=== PATIENT | male | born 1950 | race Caucasian/White ===

== ENCOUNTER 2017-11-10 16:33 | Emergency (ER) | payer MEDICARE ==
[2017-11-10] MEDS ORDERED: DOXYCYCLINE HYCLATE 100 MG TABLET PO ONE (17:33)
[2017-11-10] MEDS ORDERED: ACETAMINOPHEN 325 MG TABLET PO ONE (17:33)
--- NOTE | 2017-11-10 17:37 | ER Document Report ---
ED Skin Rash/Insect Bite/Abscs - General Chief Complaint: Abscess Stated Complaint: POSSIBLE ABSCESS Time Seen by Provider: 11/10/17 17:28 Mode of Arrival: Ambulatory Information source: Patient Notes: 67-year-old male presents emergency department with complaints of possible abscess to his back. Patient states that this has been present over the last couple of days. Patient has a history of cellulitis and abscesses. He denies a history of MRSA. Patient states his tetanus is up-to-date. Patient states that he went to urgent care today and they told him he needed to go to the emergency department for an evaluation. In the emergency department, patient has a temperature of 100.7. Patient denies taking any Tylenol or Motrin prior to arrival. He denies any chest pain, shortness of breath, abdominal pain, nausea, vomiting, diarrhea, constipation, dysuria, hematuria. TRAVEL OUTSIDE OF THE [place] IN LAST 30 DAYS: No - HPI Patient complains to provider of: Other - Abscess Onset: Last week Onset/Duration: Gradual Quality of pain: Achy Severity: Mild Pain Level: 2 Skin Character: Abscess Skin Temperature: Warm Quality of rash: No: Itchy, Painful, Burning Identify cause: No Exacerbated by: Denies Relieved by: Denies Similar symptoms previously: Yes Recently seen / treated by doctor: No - Related Data Allergies/Adverse Reactions: atorvastatin [From Lipitor] Allergy (Verified 11/10/17 17:14) bacitracin [From Neosporin Plus] Allergy (Verified 11/10/17 17:14) lidocaine [From Neosporin Plus] Allergy (Verified 11/10/17 17:14) morphine Allergy (Verified 11/10/17 17:14) neomycin [From Neosporin Plus] Allergy (Verified 11/10/17 17:14) polymyxin B [From Neosporin Plus] Allergy (Verified 11/10/17 17:14) pramoxine [From Neosporin Plus] Allergy (Verified 11/10/17 17:14) Past Medical History - Social History Smoking Status: Former Smoker Family History: Reviewed & Not Pertinent Patient has suicidal ideation: No Patient has homicidal ideation: No - Past Medical History Cardiac Medical History: Reports: Hx Congestive Heart Failure Pulmonary Medical History: Reports: Hx COPD Endocrine Medical History: Reports: Hx Diabetes Mellitus Type 2 Renal/ Medical History: Denies: Hx Peritoneal Dialysis Past Surgical History: Reports: Hx Cardiac Surgery - bypass Review of Systems - Review of Systems Constitutional: Fever EENT: No symptoms reported Cardiovascular: No symptoms reported Respiratory: No symptoms reported Gastrointestinal: No symptoms reported Genitourinary: No symptoms reported Musculoskeletal: No symptoms reported Skin: Other - Abscess, cellulitis Neurological/Psychological: No symptoms reported -: Yes All other systems reviewed and negative Physical Exam - Vital signs Vitals: Temp Pulse Resp BP Pulse Ox 100.7 F H 86 24 H 99/56 L 93 11/10/17 16:39 11/10/17 16:39 11/10/17 16:39 11/10/17 16:39 11/10/17 16:39 Interpretation: Febrile - Notes Notes: PHYSICAL EXAMINATION: GENERAL: Well-appearing, well-nourished and in no acute distress. HEAD: Atraumatic, normocephalic. EYES: Pupils equal round and reactive to light, extraocular movements intact, sclera anicteric, conjunctiva are normal. ENT: Nares patent, oropharynx clear without exudates. Moist mucous membranes. NECK: Normal range of motion, supple without lymphadenopathy LUNGS: Breath sounds clear to auscultation bilaterally and equal. No wheezes rales or rhonchi. HEART: Regular rate and rhythm without murmurs ABDOMEN: Soft, nontender, nondistended abdomen. No guarding, no rebound. No masses appreciated. Musculoskeletal: Normal range of motion, no pitting or edema. No cyanosis. Baseball size area of erythema to the left thoracic area of the back. Quarter sized area of induration. No fluctuance appreciated. Warmth appreciated. NEUROLOGICAL: Cranial nerves grossly intact. Normal speech, normal gait. Normal sensory, motor exams PSYCH: Normal mood, normal affect. SKIN: Warm, Dry, normal turgor, no rashes or lesions noted. Course - Re-evaluation Re-evalutation: 11/10/17 17:38 Patient states that he has a history of abscesses and cellulitis in the past. Patient states that most of the time they resolve with antibiotics. Patient does have a baseball size area of erythema with a quarter sized area of induration. No fluctuance appreciated. I will not I+D at this time. I will start the patient on doxycycline. Patient's temperature slightly elevated at 100.7. Patient already had tylenol. Repeat temperature is normal. Patient instructed to take medication as directed, to follow up with his primary care physician this week, and to return for worsening symptoms. Patient is agreeable with the plan of care. - Vital Signs Vital signs: Temp Pulse Resp BP Pulse Ox 99.2 F 86 24 H 95/51 L 96 11/10/17 17:48 11/10/17 16:39 11/10/17 17:16 11/10/17 17:16 11/10/17 17:16 - Laboratory Laboratory results interpreted by me: 11/10/17 16:49 POC Glucose 177 H Discharge - Discharge Clinical Impression: Abscess Cellulitis Qualifiers: Site of cellulitis: other site Qualified Code(s): L03.818 - Cellulitis of other sites Condition: Stable Disposition: HOME, SELF-CARE Instructions: Abscess ([facility]), Doxycycline ([facility]) Prescriptions: Doxycycline Hyclate 100 mg PO BID #14 capsule Referrals: ASHA VILLANUEVA DO [NO LOCAL MD] - Follow up as needed
[2017-11-10 18:04] VITALS: BP 106/57
== END 2017-11-10 18:16 | disposition home or self-care (01) ==
LOC: ER 16:33
DX: L02.212 Cutaneous abscess of back [any part, except buttock and flank] (principal); I50.9 Heart failure, unspecified; J44.9 Chronic obstructive pulmonary disease, unspecified; E11.9 Type 2 diabetes mellitus without complications; Z88.6 Allergy status to analgesic agent; Z95.1 Presence of aortocoronary bypass graft
CPT/HCPCS: 82962; 99283